=== PATIENT | female | born 2000 | race African-American/Black ===

== ENCOUNTER 2018-04-18 21:30 | Emergency (ER) | payer MEDICAID ==
[~2018-04-18] VITALS: Ht 139.7 cm; Wt 87.7 kg
[2018-04-18 21:34] VITALS: Ht 139.7 cm; Wt 87.7 kg
[2018-04-18] MEDS ORDERED: ABILIFY2 MG (21:35)
[2018-04-18] MEDS ORDERED: METFORMIN HCL500 M1 PO (21:36)
[2018-04-18] MEDS ORDERED: TRAZODONE HCL150 MG (21:36)
[2018-04-18] MEDS ORDERED: IBUPROFEN200 MG PO (21:36)
[2018-04-18 22:03] LABS: BASOPHILS 0.1 % (0-2); EOSINOPHILS 3.3 % (0-7); HEMATOCRIT 37.5 % (36.0-48.0); HEMOGLOBIN 12.7 g/dL (12-16); IMMATURE GRANULOCYTES 0.1 % (0-5); LYMPHOCYTES 43.6 % (15-50); MCH 28.5 pg (26.0-34.0); MCHC 33.9 g/dL (31.0-37.0); MCV 84.1 fL (80.0-100.0); MEAN PLATELET VOLUME 10.8 fL (7.4-10.4); MONOCYTES 9.3 % (2-11); NEUTROPHILS 43.6 % (40-80); PLATELET COUNT 231 10x3/uL (130-400); RBC 4.46 10x6/uL (4.00-5.40); RDW 13.7 % (11.5-14.5); WBC 7.3 10x3/uL (4.8-10.8)
[2018-04-18 22:19] LABS: ALBUMIN 3.6 g/dL (3.4-5.0); ALKALINE PHOSPHATASE 78 U/L (46-116); ALT (SGPT) 52 U/L (10-68); BILIRUBIN - TOTAL 0.23 mg/dL (0.2-1.3); CALC OSMOLALITY 287 mosm/kg (275-300); CALCIUM 8.7 mg/dL (8.5-10.1); CARBON DIOXIDE 27.1 mmol/L (21.0-32.0); CHLORIDE - SERUM 107 mmol/L (98-107); GLUCOSE 103 mg/dL (74-106); POTASSIUM - SERUM 3.7 mmol/L (3.5-5.1); PROTEIN - SERUM 7.3 g/dL (6.4-8.2); SODIUM 145 mmol/L (136-145); UREA NITROGEN 10 mg/dL (7-18); eGFR NON AFRICAN AMERICAN 76 mL/min (90-120)
[2018-04-18 22:52] LABS: APPEARANCE CLEAR (CLEAR); COLOR AMBER (YELLOW); SPECIFIC GRAVITY 1.025 (1.005-1.020)
[2018-04-18 22:53] LABS: BILIRUBIN NEGATIVE (NEGATIVE); GLUCOSE NEGATIVE (NEGATIVE); KETONE NEGATIVE (NEGATIVE); NITRITE NEGATIVE (NEGATIVE); PROTEIN TRACE mg/dL (NEGATIVE); UROBILINOGEN NORMAL (NORMAL)
[2018-04-18 23:21] VITALS: BP 117/64
== END 2018-04-18 23:23 | disposition home or self-care (01) ==
LOC: D.ER 21:30
PROVIDERS: Emergency Medicine
DX: R42 Dizziness and giddiness (principal); R53.1 Weakness; Q96.9 Turner's syndrome, unspecified; E11.9 Type 2 diabetes mellitus without complications